=== PATIENT | female | born 1940 ===

== ENCOUNTER → 2017-05-07 | Outpatient (CLI) | payer MEDICARE, OTHER ==
[~2017-05-07] MED LIST: AMOCLA875 PO; ASCO1ER; ASPI81EC; BUDE6HFA INH; CALTRATE; CARB50; CEPH500 PO; CHLCLI; CHLCLI PO; Caltrate Plus1 EACH PO; Colace100 MG PO; Cyclobenzaprine5 MG PO; ERGO400; ESCI10 PO; FENTANYL PUMP; FISH1000; FLUSAL1005; FURO20 PO; FURO40 PO; GARLIC; GLUCHON; Imdur30 MG PO; LANS30EC; LAVAP17G PO; LEVSOD75 PO; METPHE20; MONT10T PO; MORPHINE; MORPHINE PUMP; MSM1000; MULVITMINF; OXYACE5T PO; Oxycodone HCl5 M1 PO; PHENA200 PO; POTCHL10ER PO; POTCHL20ER PO; PRED10 PO; PROM25 PO; Percocet 5-3251 EACH PO; RALO60; STOMUL; TOCO1000; Vitamin C100 M1 PO; [UNRECOGNIZED DRUG - REMARK]; [UNRECOGNIZED DRUG - REMARK]
[2017-05-07 16:08] LABS: Source, Urine Clean Catch
[2017-05-07 16:34] LABS: Appearance, Urine Hazy (Clear); Bilirubin, Urine Neg (Neg); Blood, Urine Neg (Neg); Color, Urine Yellow (P-Yellow); Glucose Qualitative, Urine Trace (Normal); Ketones, Urine Neg (Neg); Leukocyte Esterase, Urine 1+ (Neg); Nitrite, Urine Pos (Neg); Protein, Urine Trace (Neg); Urobilinogen, Urine NORM (Normal)
[2017-05-07 16:35] LABS: Bacteria Many /hpf; Red Blood Cells, Urine 0-2 /hpf (0-2); Squamous Epithelial Cells Few /hpf (Few)
[2017-05-07 16:36] LABS: Calcium Oxalate Crystals Few /hpf
== END | disposition home or self-care (01) ==
LOC: LAB SHORT 09:30 → LAB EV 09:30
PROVIDERS: Internal Medicine
DX: R35.0 Frequency of micturition (principal)
CPT/HCPCS: 81001; 87077; 87086; 87186

== ENCOUNTER → 2017-05-27 | Outpatient (CLI) | payer MEDICARE, OTHER | END | disposition home or self-care (01) | LOC: LAB SHORT 18:59 → LAB EV 18:59 | DX: N39.0 Urinary tract infection, site not specified (principal) | CPT/HCPCS: 87077; 87086; 87186 ==

== ENCOUNTER → 2017-10-18 | Outpatient (CLI) | payer MEDICARE, OTHER | END | disposition home or self-care (01) | LOC: PLD 11:25 → LAB SHORT 11:25 | DX: D48.5 Neoplasm of uncertain behavior of skin (principal) | CPT/HCPCS: 88305 ==

== ENCOUNTER → 2017-10-24 | Outpatient (CLI) | payer MEDICARE, OTHER | END | disposition home or self-care (01) | LOC: LAB SHORT 17:27 → LAB EV 17:27 | DX: N39.0 Urinary tract infection, site not specified (principal) | CPT/HCPCS: 87077; 87086; 87186 ==

== ENCOUNTER → 2018-02-21 | Outpatient (CLI) | payer MEDICARE, OTHER ==
[~2018-02-21] MED LIST changes: +ALBU2.5V5 NEB; +ALBU90OI6 INH; +Aspir 8181 MG PO; +CEFU500T30 PO; +CETI5 PO; +ERGO400 PO; +GLUC500 PO; +HYDR1TAB94 PO; +K-Dur20 MEQ PO; +LIBRAX PO; +MORPHINE 11000 MG/10 IV; +Milk Of Ma400 MG/5 M PO; +NITR100CA PO; +ONDA4ODT MM; +Oxycodone-Apap1 EAC3 PO; +POTA10T PO; +Promethazine12.5 M1 PO; +QUET25 PO; +RALO60 PO; +Synthroid50 MCG; +Zofran8 MG PO
[2018-02-21 17:38] LABS: Source, Urine Clean Catch
[2018-02-21 18:07] LABS: Blood, Urine 2+ (Neg); Glucose Qualitative, Urine Neg (Neg); Ketones, Urine 1+ (Neg); Leukocyte Esterase, Urine 1+ (Neg); Nitrite, Urine Pos (Neg); Protein, Urine 2+ (Neg); Urobilinogen, Urine 1+ (Normal)
[2018-02-21 18:46] LABS: Appearance, Urine Clear (Clear); Bilirubin, Urine 1+ (Neg); Color, Urine Amber (P-Yellow)
[2018-02-21 18:47] LABS: Bacteria Mod /hpf; Hyaline Casts 0-2 /lpf (0-2); Mucus Light ({null, 0-Heavy}); Red Blood Cells, Urine 0-2 /hpf (0-2); Squamous Epithelial Cells Not Seen /hpf (Few)
[2018-02-21 18:48] LABS: Calcium Oxalate Crystals Many /hpf
== END | disposition home or self-care (01) ==
LOC: LAB SHORT 15:40 → LAB 15:40 → LAB FUT 02-20 15:35 → EDSTATUS 02-20 15:35
PROVIDERS: Internal Medicine
DX: R30.0 Dysuria (principal)
CPT/HCPCS: 81001; 87077; 87086; 87186

== ENCOUNTER 2018-02-28 19:32 | Emergency (ER) | payer MEDICARE, OTHER ==
[~2018-02-28] VITALS: Ht 162.6 cm; Wt 76.2 kg
[~2018-02-28 19:32] MED LIST changes: -K-Dur20 MEQ PO; -NITR100CA PO; -ONDA4ODT MM; -Promethazine12.5 M1 PO; -Zofran8 MG PO
[2018-02-28] MEDS ORDERED: LIBRAX PO (20:53)
[2018-02-28] MEDS ORDERED: FURO40 PO (20:54)
[2018-02-28] MEDS ORDERED: POTCHL10ER PO (20:56)
[2018-02-28] MEDS ORDERED: NITR100CA PO (20:57)
[2018-02-28] MEDS ORDERED: Promethazine12.5 M1 PO (20:58)
[2018-02-28] MEDS ORDERED: ONDA4ODT MM (22:22)
[2018-02-28] MEDS ORDERED: K-Dur20 MEQ PO (22:22)
[2018-02-28 23:04] LABS: Source, Urine Clean Catch
[2018-02-28 23:06] LABS: Appearance, Urine Clear (Clear); Bilirubin, Urine Neg (Neg); Blood, Urine Neg (Neg); Color, Urine Amber (P-Yellow); Glucose Qualitative, Urine Neg (Neg); Ketones, Urine 4+ (Neg); Leukocyte Esterase, Urine 1+ (Neg); Nitrite, Urine Neg (Neg); Protein, Urine 2+ (Neg); Specific Gravity, Urine 1.015 (1.003-1.022); Urobilinogen, Urine 1+ (Normal)
[2018-02-28 23:16] LABS: Bacteria Mod /hpf; Mucus Light (0-Heavy); Red Blood Cells, Urine 0-2 /hpf (0-2); Squamous Epithelial Cells Few /hpf (Few)
[2018-03-01] MEDS ORDERED: Zofran8 MG PO (16:12)
== END 2018-02-28 23:12 | disposition home or self-care (01) ==
LOC: ER 19:32
PROVIDERS: Emergency Medicine
DX: E87.6 Hypokalemia (principal); E86.0 Dehydration; J44.9 Chronic obstructive pulmonary disease, unspecified; E03.9 Hypothyroidism, unspecified; Z88.5 Allergy status to narcotic agent; Z88.8 Allergy status to other drugs, medicaments and biological substances; Z79.899 Other long term (current) drug therapy; Z79.82 Long term (current) use of aspirin; N39.0 Urinary tract infection, site not specified; R10.9 Unspecified abdominal pain; R30.0 Dysuria
CPT/HCPCS: 36415; 80048; 80076; 81001; 82150; 83690; 83735; 85025; 87086; 93005; 93010; 96365; 96375; 99284-25; J2405; J3480; J7120

== ENCOUNTER 2018-03-01 13:23 | Emergency (ER) | payer MEDICARE, OTHER ==
[~2018-03-01] VITALS: Ht 154.9 cm; Wt 76.2 kg
[~2018-03-01 13:23] MED LIST changes: +K-Dur20 MEQ PO; +NITR100CA PO; +ONDA4ODT MM; +Promethazine12.5 M1 PO
[2018-03-01 15:21] LABS: BASOPHILS ABSOLUTE AUTO 0.05 K/mm3 (0.00-0.23); BASOPHILS PERCENT AUTO 0 % (0-2); EOSINOPHILS ABSOLUTE AUTO 0.35 K/mm3 (0.00-0.68); EOSINOPHILS PERCENT AUTO 3 % (0-6); Hematocrit 43.5 % (33.0-51.0); Hemoglobin 13.9 g/dL (11.5-16.0); IMMATURE GRAN ABSOLUTE AUTO 0.18 K/mm3 (0.00-0.10); IMMATURE GRAN PERCENT AUTO 2 % (0-1); LYMPHOCYTES ABSOLUTE AUTO 2.48 K/mm3 (0.84-5.20); LYMPHOCYTES PERCENT AUTO 21 % (21-46); MONOCYTES PERCENT AUTO 12 % (4-13); Mean Corpuscular HGB 30.2 pg (26.0-34.0); Mean Corpuscular Volume 94 fL (80-100); NEUTROPHILS ABSOLUTE AUTO 7.49 K/mm3 (1.96-9.15); NEUTROPHILS PERCENT AUTO 63 % (41-73); Platelet Count 235 K/mm3 (150-400); RDW Coefficient Variation 12.7 % (11.7-14.2); RDW Standard Deviation 44.1 fL (35.1-46.3); Red Blood Cell Count 4.61 M/mm3 (3.80-5.20); White Blood Cell Count 11.95 K/mm3 (4.00-11.30)
[2018-03-01 15:33] LABS: Alanine Aminotransfer (ALT/SGP 20 U/L (12-78); Albumin, Blood 3.4 g/dL (3.4-5.0); Albumin/Globulin Ratio 1.1 (0.8-1.8); Alk Phos 80 U/L (50-136); Anion Gap 7 mmol/L (6-16); Aspartate Aminotrans (AST/SGOT 21 U/L (12-37); Bilirubin, Total 0.9 mg/dL (0.1-1.0); Blood Urea Nitrogen 16 mg/dL (8-24); Bun/Creatinine Ratio 22.6 (12.0-20.0); CO2, Blood 34 mmol/L (21-32); Calcium, Blood 8.3 mg/dL (8.5-10.1); Chloride, Blood 103 mmol/L (98-108); Creatinine, Blood 0.71 mg/dL (0.40-1.00); Globulin, Blood 3.2 g/dL (2.2-4.0); Glomerular Filtration Rate >60 (60-); Glucose, Blood 110 mg/dL (70-99); Potassium, Blood 3.5 mmol/L (3.5-5.5); Sodium, Blood 144 mmol/L (136-145); Total Protein, Blood 6.6 g/dL (6.4-8.2)
[2018-03-01] MEDS ORDERED: Zofran8 MG PO (16:12)
== END 2018-03-01 17:54 | disposition home or self-care (01) ==
LOC: ER 13:23
PROVIDERS: Emergency Medicine
DX: R63.0 Anorexia (principal); Z68.31 Body mass index [BMI] 31.0-31.9, adult; Z88.5 Allergy status to narcotic agent; Z88.8 Allergy status to other drugs, medicaments and biological substances; Z79.899 Other long term (current) drug therapy; Z79.82 Long term (current) use of aspirin; J44.9 Chronic obstructive pulmonary disease, unspecified; E03.9 Hypothyroidism, unspecified; Z79.891 Long term (current) use of opiate analgesic
CPT/HCPCS: 74177; 80053; 85025; 96365; 96366; 96375; 99285-25; J2405; J3480; Q9967

== ENCOUNTER → 2018-09-11 | Outpatient (CLI) | payer MEDICARE, OTHER ==
[~2018-09-11] MED LIST changes: +Zofran8 MG PO
[2018-09-11 16:13] LABS: Bilirubin, Urine Neg (Neg); Blood, Urine 1+ (Neg); Glucose Qualitative, Urine Neg (Neg); Ketones, Urine Neg (Neg); Leukocyte Esterase, Urine 3+ (Neg); Nitrite, Urine Neg (Neg); Protein, Urine Neg (Neg); Urobilinogen, Urine NORM (Normal)
[2018-09-11 16:33] LABS: Appearance, Urine Clear (Clear); Color, Urine Yellow (P-Yellow)
[2018-09-11 16:34] LABS: Bacteria Many /hpf; Calcium Oxalate Crystals Few /hpf; Red Blood Cells, Urine 0-2 /hpf (0-2); Squamous Epithelial Cells Rare /hpf (Few); Transitional Epithelial Cells Few /hpf ({null, 0-Rare}); White Blood Cells, Urine 25-50 /hpf (0-5)
== END | disposition home or self-care (01) ==
LOC: LAB SHORT 15:35 → LAB 15:35 → LAB FUT 09-12 15:15
PROVIDERS: Internal Medicine
DX: R30.0 Dysuria (principal)
CPT/HCPCS: 81001; 87086

== ENCOUNTER → 2018-12-12 | Outpatient (CLI) | payer MEDICARE, OTHER ==
[2018-12-12 17:14] LABS: Source, Urine Voided
[2018-12-12 18:17] LABS: Bilirubin, Urine Neg (Neg); Blood, Urine Neg (Neg); Glucose Qualitative, Urine Neg (Neg); Ketones, Urine Neg (Neg); Leukocyte Esterase, Urine Neg (Neg); Nitrite, Urine Neg (Neg); Protein, Urine Neg (Neg); Urobilinogen, Urine NORM (Normal)
[2018-12-12 18:35] LABS: Appearance, Urine Clear (Clear); Color, Urine Yellow (P-Yellow)
== END | disposition home or self-care (01) ==
LOC: LAB SHORT 14:45 → LAB 14:45 → LAB FUT 12-12 13:15
PROVIDERS: Internal Medicine
DX: R32 Unspecified urinary incontinence (principal)
CPT/HCPCS: 81003

== ENCOUNTER → 2019-06-11 | Outpatient (CLI) | payer MEDICARE, OTHER | END | disposition home or self-care (01) | LOC: LAB SHORT 16:20 → LAB 16:20 | DX: L03.90 Cellulitis, unspecified (principal) | CPT/HCPCS: 87070; 87075; 87205 ==

== ENCOUNTER → 2019-11-12 | Outpatient (CLI) | payer MEDICARE, OTHER | END | disposition home or self-care (01) | LOC: PLD 11:05 → LAB SHORT 11:05 | DX: D48.5 Neoplasm of uncertain behavior of skin (principal) | CPT/HCPCS: 88305 ==

== ENCOUNTER 2020-08-08 12:49 | Observation (INO) | payer MEDICARE, OTHER ==
[~2020-08-08] VITALS: Ht 154.9 cm; Wt 66.0 kg
[~2020-08-08 12:49] MED LIST changes: -ALBU90OI6 INH; -QUET25 PO; -RALO60 PO; -Synthroid50 MCG
[2020-08-08 14:06] LABS: BASOPHILS ABSOLUTE AUTO 0.04 K/mm3 (0.00-0.23); BASOPHILS PERCENT AUTO 0 % (0-2); EOSINOPHILS ABSOLUTE AUTO 0.29 K/mm3 (0.00-0.68); EOSINOPHILS PERCENT AUTO 3 % (0-6); Hematocrit 40.1 % (33.0-51.0); Hemoglobin 12.2 g/dL (11.5-16.0); IMMATURE GRAN ABSOLUTE AUTO 0.06 K/mm3 (0.00-0.10); IMMATURE GRAN PERCENT AUTO 1 % (0-1); LYMPHOCYTES ABSOLUTE AUTO 1.13 K/mm3 (0.84-5.20); LYMPHOCYTES PERCENT AUTO 11 % (21-46); MONOCYTES ABSOLUTE AUTO 1.37 K/mm3 (0.16-1.47); MONOCYTES PERCENT AUTO 13 % (4-13); Mean Corpuscular HGB 27.9 pg (26.0-34.0); Mean Corpuscular HGB Conc 30.4 g/dL (31.5-36.5); Mean Corpuscular Volume 92 fL (80-100); NEUTROPHILS ABSOLUTE AUTO 7.74 K/mm3 (1.96-9.15); NEUTROPHILS PERCENT AUTO 73 % (41-73); Platelet Count 310 K/mm3 (150-400); RDW Coefficient Variation 12.7 % (11.7-14.2); RDW Standard Deviation 42.5 fL (35.1-46.3); Red Blood Cell Count 4.37 M/mm3 (3.80-5.20); White Blood Cell Count 10.63 K/mm3 (4.00-11.30)
[2020-08-08 14:18] LABS: Alanine Aminotransfer (ALT/SGP 16 U/L (12-78); Albumin, Blood 2.7 g/dL (3.4-5.0); Albumin/Globulin Ratio 0.6 (0.8-1.8); Alk Phos 74 U/L (50-136); Anion Gap 1 mmol/L (6-16); Aspartate Aminotrans (AST/SGOT 34 U/L (12-37); Bilirubin, Total 0.6 mg/dL (0.1-1.0); Blood Urea Nitrogen 10 mg/dL (8-24); Bun/Creatinine Ratio 19.6 (12.0-20.0); CO2, Blood 35 mmol/L (21-32); Chloride, Blood 101 mmol/L (98-108); Creatinine, Blood 0.51 mg/dL (0.40-1.00); Globulin, Blood 4.6 g/dL (2.2-4.0); Glomerular Filtration Rate >60 (60-); Glucose, Blood 114 mg/dL (70-99); Potassium, Blood 4.7 mmol/L (3.5-5.5); Sodium, Blood 137 mmol/L (136-145); Total Protein, Blood 7.3 g/dL (6.4-8.2); Troponin I <0.015 ng/mL (0.000-0.040)
[2020-08-08 14:27] LABS: Base Excess Venous 12.8 mmol/L; Bicarbonate Venous 34.3 mmol/L (24.0-30.0); PCO2 Venous 63.6 mmHg (38-42); PO2 Venous 121 mmHg (38-42); pH Blood Venous 7.38 (7.34-7.37)
[2020-08-08 15:35] LABS: Source, Urine Catheter
[2020-08-08 16:00] LABS: Appearance, Urine Hazy (Clear); Bilirubin, Urine Neg (Neg); Blood, Urine Neg (Neg); Color, Urine Yellow (P-Yellow); Glucose Qualitative, Urine Neg (Neg); Ketones, Urine Neg (Neg); Leukocyte Esterase, Urine Neg (Neg); Nitrite, Urine Neg (Neg); Protein, Urine Neg (Neg); Specific Gravity, Urine 1.015 (1.003-1.022); Urobilinogen, Urine NORM (Normal)
[2020-08-08 16:25] LABS: Amorphous Mod (0-Heavy); White Blood Cells, Urine 0-2 /hpf (0-5)
[2020-08-08 16:26] LABS: Bacteria Not Seen /hpf; Red Blood Cells, Urine 0-2 /hpf (0-2); Squamous Epithelial Cells Rare /hpf (Few)
[2020-08-08] MEDS ORDERED: CEFU500T30 PO (17:22)
[2020-08-08] MEDS ORDERED: RALO60 PO (17:22)
[2020-08-08] MEDS ORDERED: LEVSOD75 PO (17:22)
[2020-08-08] MEDS ORDERED: ESCI10 PO (17:34)
[2020-08-08] MEDS ORDERED: MONT10T PO (17:35)
[2020-08-08] MEDS ORDERED: ALBU90OI6 INH (17:35)
[2020-08-08] MEDS ORDERED: QUET25 PO (17:35)
[2020-08-08] MEDS ORDERED: VITAMIN D31000 UNI1 PO (17:36)
[2020-08-08] MEDS ORDERED: LIBRAX CAPSULE1 EACH PO (17:38)
[2020-08-09 05:31] LABS: BASOPHILS ABSOLUTE AUTO 0.04 K/mm3 (0.00-0.23); BASOPHILS PERCENT AUTO 1 % (0-2); EOSINOPHILS ABSOLUTE AUTO 0.22 K/mm3 (0.00-0.68); EOSINOPHILS PERCENT AUTO 3 % (0-6); Hematocrit 34.4 % (33.0-51.0); Hemoglobin 10.5 g/dL (11.5-16.0); IMMATURE GRAN ABSOLUTE AUTO 0.03 K/mm3 (0.00-0.10); IMMATURE GRAN PERCENT AUTO 0 % (0-1); LYMPHOCYTES ABSOLUTE AUTO 1.14 K/mm3 (0.84-5.20); LYMPHOCYTES PERCENT AUTO 15 % (21-46); MONOCYTES ABSOLUTE AUTO 1.38 K/mm3 (0.16-1.47); MONOCYTES PERCENT AUTO 18 % (4-13); Mean Corpuscular HGB 28.2 pg (26.0-34.0); Mean Corpuscular HGB Conc 30.5 g/dL (31.5-36.5); Mean Corpuscular Volume 92 fL (80-100); Mean Platelet Volume 9.4 fL (9.1-12.4); NEUTROPHILS ABSOLUTE AUTO 4.96 K/mm3 (1.96-9.15); NEUTROPHILS PERCENT AUTO 64 % (41-73); Platelet Count 245 K/mm3 (150-400); RDW Coefficient Variation 12.7 % (11.7-14.2); RDW Standard Deviation 42.3 fL (35.1-46.3); Red Blood Cell Count 3.73 M/mm3 (3.80-5.20); White Blood Cell Count 7.77 K/mm3 (4.00-11.30)
--- NOTE | 2020-08-09 07:31 | NUR ---
DIETER WAS QUITE SOMNOLENT OVERNIGHT. ARMS/HANDS WERE HER MOST EXQUISITE AREA OF PAIN. PATIENT'S DAUGHTER, ALEXI PRODUCED A PHOTOCOPY OF HER MOTHERS POLST WHICH INDICATED THAT SHE WANTED TO BE A DNR IN THE EVENT HER HEART STOPPED. WHEN THIS RN ASKED DIETER ABOUT THE POLST, SHE STATED HER WISHES HADN'T CHANGED. WAS NOTIFIED. PATIENT APPEARS QUITE FRAGILE, AND THE DAYSHIFT RN WAS INFORMED ABOUT THE NEED FOR HER TO HAVE ALEXI BRING IN MOM'S GLASSES. AND A REQUEST FOR THE DAY HOSPITALIST FOR A GENTLE MEDICATION FOR BREAKTHROUGH PAIN
[2020-08-09] MEDS ORDERED: DEXA4 PO (13:35)
--- NOTE | 2020-08-09 14:36 | NUR ---
SUMMARY/DISCHARGE PT DISCHARGED TO HOME WITH HOME HEALTH, PT AND DAUGHTER VERBALIZED UNDERSTANDING OF DISCHARGE INSTRUCTIONS REGARDING FOLLOW UP AND MEDICATIONS, PT TAKEN OUT SAFELY VIA WHEELCHAIR
== END 2020-08-09 14:36 | disposition home health service (06) ==
LOC: ER 12:49 → MEDS 12:50
PROVIDERS: Emergency Medicine; ADMIT Internal Medicine
DX: G93.41 Metabolic encephalopathy (principal); J44.9 Chronic obstructive pulmonary disease, unspecified; J84.9 Interstitial pulmonary disease, unspecified; K59.00 Constipation, unspecified; R06.89 Other abnormalities of breathing; E03.9 Hypothyroidism, unspecified; R00.0 Tachycardia, unspecified; M19.042 Primary osteoarthritis, left hand; M19.041 Primary osteoarthritis, right hand; M54.9 Dorsalgia, unspecified; G89.29 Other chronic pain; J84.10 Pulmonary fibrosis, unspecified; R53.81 Other malaise; Z88.5 Allergy status to narcotic agent; Z99.81 Dependence on supplemental oxygen
CPT/HCPCS: 36415; 73120; 80053; 81001; 82803; 84484; 84550; 85025; 85651; 86038; 86140; 86430; 93005; 93010; 94760; 96372; 96374; 96375; 96376; 97161; 97530; 99285-25; A9270; G0378; J1650; J1885; J2405; J3010; P9612